=== PATIENT | male | born 1970 | race Caucasian/White ===

== ENCOUNTER 2019-06-10 12:59 | Outpatient (CLI) | payer OTHER, SELFPAY | END 2019-06-10 13:00 | disposition home or self-care (01) | LOC: CHSIMG 13:01 | PROVIDERS: PCP Internal Medicine; Visit Provider Internal Medicine | DX: R94.31 Abnormal electrocardiogram [ECG] [EKG] (principal) | CPT/HCPCS: 93306 ==

== ENCOUNTER 2020-08-13 11:03 | Emergency (ER) | payer OTHER, SELFPAY ==
--- NOTE | 2020-08-13 11:24 | ED.WOUNDLAC ---
HPI - Wound/Laceration General Chief Complaint: Extremity Problem,Nontraumatic Stated Complaint: left foot pain Source: patient Mode of arrival: ambulatory Limitations: no limitations History of Present Illness HPI narrative: this is a 49-year-old male presents with some was diagnosis cellulitis by urgent care and currently on antibiotics and also given naproxen, pain is tolerable x-rays performed at the urgent care show no acute fractures patient was placed on p.o. antibiotics. There is currently some mild swelling with redness it appears localized to the lateral aspect of his left ankle with no spread of the cellulitis no calf pain no warmth or tenderness. Onset (ago): day(s) Extremity Location: Left: ankle ( cellulitis) Related Data Home Medications Medication Instructions Recorded Confirmed cephalexin 500 mg PO QID 08/13/20 08/13/20 lisinopril 20 mg PO DAILY 08/13/20 08/13/20 naproxen 500 mg PO BID 08/13/20 08/13/20 Allergies Allergy/AdvReac Type Severity Reaction Status Date / Time No Known Allergies Allergy Verified 08/13/20 11:18 Review of Systems Review of Systems: All systems reviewed & are unremarkable except as noted in HPI and below PMFSH Past Medical History Medical History Patient denies medical problems Exam Const: General: no acute distress and alert Orientation/consciousness: patient oriented x3 HENMT: Head: normal to inspection Eyes: Conjunctivae: conjunctivae normal Pupils: Equal, round and reactive pupils present EOM: EOMs intact bilaterally Neck: Neck: normal visual inspection, no lymphadenopathy and no meningeal signs Chest: Chest palpation & inspection: normal inspection of the chest Resp: Effort & Inspection: normal respiratory effort Cardio: Rate: regular rate Rhythm: regular rhythm Urinary Catheter: Urinary Catheter: patent and draining Skin: General skin exam: normal color Other: mild erythema lateral aspect of his left ankle improving per patient Neuro: General: patient oriented x3 Extrem: General: normal to inspection and edema Psych: Mental Status: mental status grossly normal Affect: normal affect Course Course Emergency Course: patient here today was diagnosed with cellulitis on Thursday prescribed antibiotics and naproxen currently having some mild swelling but reassured patient that swelling is part of the infection and to continue his antibiotics if symptoms persist should follow-up primary care physician. Critical Care Time Critical Care Time Critical Care Time: No Discharge Plan Discharge Clinical Impression: Lower extremity edema Cellulitis Qualifiers: Site of cellulitis: extremity Site of cellulitis of extremity: lower extremity Laterality: left Qualified Code(s): L03.116 - Cellulitis of left lower limb Patient Disposition: Home, Self-Care Condition: Stable Instructions: Antibiotic Form, Edema (ED), Cellulitis (ED) Additional Instructions: continue current medication follow-up with primary care physician if symptoms persist or worsen. Prescriptions: No Action lisinopril 20 mg tablet 20 mg PO DAILY RF: 0 cephalexin 500 mg capsule 500 mg PO QID RF: 0 naproxen 500 mg tablet 500 mg PO BID RF: 0 Follow-up/Referrals: Hugo To MD [Primary Care Provider] - Time of Disposition: 11:29
[2020-08-13 11:35] VITALS: BP 184/120
== END 2020-08-13 11:35 | disposition home or self-care (01) ==
PROVIDERS: Emergency Provider Emergency Medicine; PCP Internal Medicine
DX: L03.116 Cellulitis of left lower limb (principal)
CPT/HCPCS: 99281; 99282

== ENCOUNTER 2022-12-30 01:22 | Day surgery (SDC) | payer BC, SELFPAY ==
[2022-12-19 15:57] VITALS: BMI 24.4
--- NOTE | 2022-12-30 11:18 | WPDANESEPPF ---
Anes - Initial Pre Proc Eval Procedure: Operation Date: 12/30/22 12:30 Proposed Procedures p Colonoscopy - Josse Quinonez MD Date/Time: 12/30/22 11:18 Surgeon: Josse Quinonez MD Pre Op Diagnosis: Diarrhea Patient Data Age: 52 Gender: M Height: 1.78 m Weight: 77.2 kg Allergies Allergy/AdvReac Type Severity Reaction Status Date / Time No Known Allergies Allergy Verified 12/19/22 15:56 Home Medications Medication Instructions Recorded Confirmed Type atenolol 50 mg tablet 50 mg PO DAILY 12/19/22 12/19/22 History losartan 100 1 tablet PO DAILY 12/19/22 12/19/22 History mg-hydrochlorothiazide 25 mg tablet Patient hx anesthesia problems: none Family hx anesthesia problems: none Results Review: All pre-operative results and documents have been reviewed as part of the pre-operative evaluation. [facility] Past Medical History Medical History Patient denies medical problems Social History Social History Smoking status: Never smoker Alcohol intake: current Drinks per week: 6 Substance use type: does not use Living arrangements: with family Spiritual care concerns: No Anes - Eval Final PreProcedure Day of Procedure 12/30/22 11:18 Patient weight: normal Heart: regular rate and rhythm Lungs: clear to auscultation Airway: Mallampati scale class II Neurological: alert and oriented Last oral intake: >/= 8 hours ASA classification: II Emergent: no Anesthetic plan: proceed Anesthesia type and monitoring: general GIVS and standard monitoring Results Review: All pre-operative results and documents have been reviewed as part of the pre-operative evaluation. Informed Consent: The patient's anesthetic plan and its attendant risks and benefits were discussed with the patient/family/POA. Questions were solicited and answers provided to the satisfaction of the patient/family/POA.
[2022-12-30 11:20] VITALS: BP 183/118; PULSE 85; RESP 18; TEMP 36.5; O2SAT 100
[2022-12-30] MEDS: LACTATED RINGERS 1,000 ML 150 ML IV CONT (11:24)
--- NOTE | 2022-12-30 11:26 | PM.HPGS ---
History of Present Illness History of Present Illness Consent: Risks, benefits, and alternatives have been discussed and questions answered. Patient agrees to proceed with procedure. Chief complaint: Diarrhea Narrative: Jaron Sheets is a 52 year old male with previous history of diverticulosis, last colonoscopy 2015, recently had diarrhea and llq pain Review of Systems Constitutional: Constitutional: Denies headache(s) and Denies weakness Eyes: Eyes: Denies blurry vision ENT: Reports Normal hearing present, Denies headache(s) and Denies neck pain Cardiovascular: Cardiovascular: Denies chest pain and Denies dyspnea Respiratory: Respiratory: Denies dyspnea Gastrointestinal: Gastrointestinal: Reports no additional gastrointestinal complaints Genitourinary: Genitourinary: Denies dysuria Musculoskeletal: Musculoskeletal: Denies neck pain Integumentary/Breasts: Skin/Breast: Denies dry skin Neurologic: Reports Normal hearing present, Denies headache(s) and Denies weakness Psychiatric: Psychiatric: Denies anxiety Endocrine: Endocrine: Denies change in body appearance Hematologic/Lymphatic: Hematologic/Lymphatic: Denies easy bleeding Allergic/Immunologic: Allergic/Immunologic: Denies urticaria PMF Past Medical History Medical History (Updated 12/30/22 @ 11:27 by Josse Quinonez MD) Colon cancer screening Patient denies medical problems Social History Social History Smoking status: Never smoker Alcohol intake: current Drinks per week: 6 Substance use type: does not use Living arrangements: with family Spiritual care concerns: No Meds Home Medications and Allergies Home Medications Medication Instructions Recorded Confirmed Type atenolol 50 mg tablet 50 mg PO DAILY 12/19/22 12/19/22 History losartan 100 1 tablet PO DAILY 12/19/22 12/19/22 History mg-hydrochlorothiazide 25 mg tablet Allergies Allergy/AdvReac Type Severity Reaction Status Date / Time No Known Allergies Allergy Verified 12/30/22 11:20 Vital Signs Vital Signs - 24 hr 12/30/22 11:20 Temperature 97.7 F Pulse Rate 85 Respiratory Rate 18 Blood Pressure 183/118 H Pulse Oximetry 100 Oxygen Delivery Room Air Exam Const: General: comfortable and no acute distress HENMT: Face/Nose/Sinus: Normal nares present Eyes: General: appearance normal, both eyes and all related structures Neck: Neck: no JVD Resp: Auscultation: clear to auscultation bilaterally Cardio: Rate: regular rate Rhythm: regular rhythm GI: Inspection: non-distended GI Palp: Yes Soft to palpation Skin: General skin exam: normal color Neuro: General: gait normal Speech: normal speech Extrem: General: normal to inspection Psych: Mental Status: mental status grossly normal Assessment and Plan Assessment and plan (1) Colon cancer screening: Code(s): Z12.11 - Encounter for screening for malignant neoplasm of colon Status: Acute Assessment and Plan: colonoscopy
[2022-12-30 11:41] VITALS: BP 129/71; PULSE 77; RESP 20; O2SAT 100
[2022-12-30 11:51] VITALS: BP 128/89; PULSE 76; RESP 18; O2SAT 98
[2022-12-30 12:01] VITALS: BP 148/100; PULSE 71; RESP 18; O2SAT 98
== END 2022-12-30 12:10 | disposition home or self-care (01) ==
PROVIDERS: PCP Internal Medicine; Visit Provider Internal Medicine Gastroenterology
PROC: 0DJD8ZZ Inspection of Lower Intestinal Tract, Via Natural or Artificial Opening Endoscopic (ICD-10-PCS; CPT 45378; principal; 2022-12-30 12:30)
DX: Z12.11 Encounter for screening for malignant neoplasm of colon (principal); K57.30 Diverticulosis of large intestine without perforation or abscess without bleeding; K64.8 Other hemorrhoids; R19.7 Diarrhea, unspecified
CPT/HCPCS: 45380; 88305; J2704; J7120

== ENCOUNTER 2023-03-06 11:28 | Outpatient (CLI) | payer BC, SELFPAY ==
--- NOTE | ~2023-03-06 | XR_ITS ---
Lumbosacral Spine: AP and lateral views Clinical History: Pain Findings: The normal lordotic curve is maintained. The vertebral bodies and posterior elements are i ntact. The intervertebral disc spaces are preserved. There is mild to moderate facet arthropathy of the lower lumbar spine. The sacroiliac joints are normally outlined. Impression: Mild to moderate facet arthropathy at the lower lumbar spine. Reviewed, dictated and finalized at location . [employer] Impression: Mild to moderate facet arthropathy at the lower lumbar spine.
== END 2023-03-06 11:29 | disposition home or self-care (01) ==
LOC: CHSIMG 11:31
PROVIDERS: PCP Internal Medicine; Visit Provider Internal Medicine
DX: M54.50 Low back pain, unspecified (principal); M12.88 Other specific arthropathies, not elsewhere classified, other specified site
CPT/HCPCS: 72100

== ENCOUNTER 2023-09-29 10:07 | Outpatient (CLI) | payer BC, SELFPAY ==
--- NOTE | ~2023-09-29 | XR_ITS ---
Right foot Technique: AP, oblique, and lateral views were obtained. Clinical History: Swelling Findings: No acute fracture or dislocation is seen. Osseous alignment is anatomic. Joint spaces are p reserved without erosive or degenerative change. Soft tissues are unremarkable. Impression: Unremarkable right foot radiographs. Reviewed, dictated and finalized at location . Impression: Unremarkable right foot radiographs.
--- NOTE | ~2023-09-29 | XR_ITS ---
Left foot Technique: AP, oblique, and lateral views were obtained. Clinical History: Gout Findings: No acute fracture or dislocation is seen. Osseous alignment is anatomic. Joint spaces are p reserved without erosive or degenerative change. Soft tissues are unremarkable. Impression: Unremarkable left foot radiographs. Reviewed, dictated and finalized at location . Impression: Unremarkable left foot radiographs.
== END 2023-09-29 10:08 | disposition home or self-care (01) ==
LOC: CHSIMG 10:10
PROVIDERS: PCP Internal Medicine; Visit Provider Nurse Practitioner Family
DX: M10.9 Gout, unspecified (principal); R22.41 Localized swelling, mass and lump, right lower limb
CPT/HCPCS: 73630

== ENCOUNTER 2024-12-12 15:03 | Emergency (ER) | payer BC, SELFPAY ==
--- NOTE | ~2024-12-12 | CT_ITS ---
EXAMINATION: CT abdomen pelvis wo con DATE: 12/12/2024 15:16 INDICATION: Flank pain TECHNIQUE: Computed tomography (CT) of the abdomen and pelvis was performed without intravenous contrast. The dose-length product was 427.50 mGy-cm. Automated exposure control and iterative reconstruction technique were employed. COMPARISON: None. FINDINGS: Lung bases unremarkable. Heart size normal. No significant pleural or pericardial effusion. Fatty infiltration of the liver. The spleen, pancreas, adrenal glands and left kidney are unremarkable. There is punctate calcification in the bladder, consistent with recently passed stone with moderate right hydroureteronephrosis and mild right perinephric stranding. Bladder is decompressed limiting evaluation for wall thickening. No abnormal pelvic masses or fluid collections. There is mild atherosclerosis of the aorta without aneurysm. No lymphadenopathy. Gallbladder is present. No free air or free fluid. Colonic diverticulosis without evidence for diverticulitis. IMPRESSION: 1. Small punctate 2 mm bladder stone, consistent with recently passed stone with resultant hydronephrosis. Reviewed, dictated and finalized at location O. IMPRESSION: 1. Small punctate 2 mm bladder stone, consistent with recently passed stone wit h resultant hydronephrosis.
[2024-12-12 15:05] VITALS: BP 171/94; PULSE 69; RESP 16; TEMP 36.7; O2SAT 100
--- OUTSIDE RECORDS SUMMARY | 2024-12-12 15:16 | XMS_ITS | Clinical Summary ---
Author Organization [facility] Address [facility] [place] [address] Care Team Providers Care Cosmetic Consultant Name Role Phone Hugo To MD Primary Care Provider [phone] Allergies No known active allergies Medications No known medications Active Problems Problem Noted Date Diagnosed Date Microscopic hematuria 07/16/2020 Overview (07/16/2020): Added automatically from request for surgery [id number] Social History Tobacco Use Types Packs/Day Years Used Date Smoking Tobacco: Never Smokeless Tobacco: Former Alcohol Use Standard Drinks/Week Comments Yes 0 (1 standard drink = 0.6 oz pur e alcohol) occationally Sex and Gender Information Value Date Recorded Sex Assigned at Not on file Legal 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 Gender Identity Not on file Sexual Orientation Not on file Last Filed Vital Signs Vital Sign Reading Time Taken Comments Blood Pressure - - Pulse - - Temperature - - Respiratory Rate - - Oxygen Saturation - - Inhaled Oxygen Concentration - - Weight 77.1 kg (170 lb) 07/17/2020 11:09 AM CDT Height 177.8 cm (5' 10) 07/17/2020 11:09 AM CDT Body Mass Index 24.39 07/17/2020 11:09 AM CDT Plan of Treatment Health Maintenance Due Date Last Done Comments Colorectal Cancer Screening Colonoscopy (10 Years) 1972 Annual Physical 10/23/1975 Hepatitis C 1990 DTaP, Tdap and Td Vaccines ( 1 - Tdap) 10/23/1991 Hepatitis B Vaccines (1 of 3 - 19+ 3-dose series) 10/23/1991 Pneumococcal Vaccine: 50+ Ye ars (1 of 1 - PCV) 2022 Zoster Vaccines (1 of 2) 2022 COVID-19 Vaccine (2023-2 5 season) 2024 Meningococcal B Vaccine Aged Out No l onger eligible based on patient's age to complete this topic Meningococcal Vaccine Aged Out No dayanara didi eligible based on patient's age to complete this topic RSV Immunizations Under 20 Months Aged Out No longer eligible based on patient's age to complete this topic Insurance [facility] Care Teams Cosmetic Consultant Relationship Specialty Start Date End Date Hugo To MD [address] [place] [id number] PCP - General INTERNAL MEDICINE 07/10/20
[2024-12-12 15:37] LABS: Hematocrit 41.0 % (40.0-54.0); Hemoglobin 13.6 g/dL (14.0-18.0); Immature Granulocyte Percent A 0.5 % (0.0-0.0); Lymphocytes Absolute Auto 1.70 K/mm3 (1.10-4.50); Mean Corpuscular HGB Conc 33.2 g/dL (32-36); Mean Corpuscular Hemoglobin 31.2 pg (27.0-31.0); Mean Corpuscular Volume 94.0 fL (78.0-102.0); Nucleated Red Blood Cells Absolute Auto 0.00 K/mm3 (0.00-0.00); Nucleated Red Blood Cells Perc 0.0 % (0-0.0); Platelet Count Result 245 K/mm3 (150-420); Red Blood Count 4.36 M/mm3 (4.70-6.10); White Blood Count 9.9 K/mm3 (4.8-10.8)
[2024-12-12 15:38] LABS: Add Urine Microscopic? YES; Appearance Urine Clear (Clear); Glucose Urine UA Negative (Negative); Leukocyte Esterase Ur 1+ LEU/UL (Negative); Nitrate Urine Negative (Negative); Specific Grav Ur 1.025 (1.010-1.020)
[2024-12-12 15:48] LABS: Alanine Aminotransferase 43 U/L (6-50); Albumin Level 4.9 g/dL (3.5-5.1); Alkaline Phosphatase 69 U/L (38-126); Anion Gap 13 mmol/L (4-12); Aspartate Amino Transferase 34 U/L (17-59); Bilirubin,Total 0.8 mg/dL (0.2-1.3); Blood Urea Nitrogen 27 mg/dL (9-20); Calcium 10.2 mg/dL (8.4-10.2); Carbon Dioxide 26 mmol/L (22-30); Chloride 99 mmol/L (98-107); Estimated CRCL calculation 40 ml/min; Estimated Glomerular Filt Rate 35; Glucose 114 mg/dL (65-110); Osmolality Calculated 292 mOsm/kg (285-295); Potassium 3.9 mmol/L (3.4-5.0); Sodium 138 mmol/L (137-145); Total Protein 10.6 g/dL (6.3-8.2)
--- NOTE | 2024-12-12 16:02 | ED.ABDPAIN ---
HPI - Abdominal Pain General Chief Complaint: Urogenital-Male Stated Complaint: rt. flank pain Time Seen by Provider: 12/12/24 15:07 Source: patient Mode of arrival: ambulatory Limitations: no limitations History of Present Illness HPI narrative: 54-year-old with a history of hypertension, hyperlipidemia here with a complains of right flank pain which started 2 days ago. Patient states that the 1st 2 days he had fever however since yesterday fever is much subsided. He went to urgent care earlier this morning was told that he had blood in the urine and was referred to the ER. He presently denies having any nausea, vomiting of the fever or chills. No previous history of kidney stones. MD elicited complaint: flank pain Onset (ago): day(s) (3) Pain Consistency: now resolved Location: R flank Severity: moderate Quality: aching Radiation: none Migration to: no migration Exacerbating factors: nothing Relieving factors: nothing Associated symptoms: fever Related Data Home Medications ?Medication ?Instructions ?Recorded ?Confirmed ?Last Taken ?Type atenolol 50 mg tablet 50 mg PO DAILY 12/19/22 11/10/24 12/29/22 History losartan 100 1 tablet PO DAILY 12/19/22 11/10/24 12/29/22 History mg-hydrochlorothiazide 25 mg tablet omega 7-hum-kuq-fish oil 1,000 mg 1 cap PO BID 11/10/24 11/10/24 Unknown History (120 mg-180 mg) capsule (Fish Oil) rosuvastatin 5 mg tablet 5 mg PO DAILY 11/10/24 11/10/24 Unknown History Allergies Allergy/AdvReac Type Severity Reaction Status Date / Time No Known Allergies Allergy Verified 12/30/22 11:20 Review of Systems Review of Systems: All systems reviewed & are unremarkable except as noted in HPI and below Constitutional: Constitutional: Reports no additional constitutional complaints Eyes: Eyes: Reports no additional eye complaints ENT: Reports system reviewed and no additional complaints, except as documented Cardiovascular: Cardiovascular: Reports no additional cardiovascular complaints Respiratory: Respiratory: Reports no additional respiratory complaints Gastrointestinal: Gastrointestinal: Reports as per HPI Musculoskeletal: Musculoskeletal: Reports no additional musculoskeletal complaints ON LICENSE OF [facility] Past Medical History Medical History Colon cancer screening Patient denies medical problems Social History Social History Smoking status: Never smoker Alcohol intake: current Drinks per week: 6 Substance use type: does not use Living arrangements: with family Spiritual care concerns: No Exam Narrative: GENERAL: Well-appearing, well-nourished, and in no acute distress. HEAD: Normocephalic, atraumatic. EYES: PERRLA and EOMI. ENT: Nares clear, no rhinorrhea or epistaxis. Mucous membranes moist. NECK: Supple. CHEST: Clear to auscultation. No respiratory distress. HEART: Regular rate and rhythm. No murmur heard. Normal peripheral pulses. ABDOMEN: Soft, nontender, nondistended, normal active bowel sounds. EXTREMITIES: Normal range of motion. No edema. SKIN: Warm, dry, no rash. NEURO: No focal deficits. Alert and oriented x3. PSYCH: Normal mood and affect. Course Course Emergency Course: Patient still remained pain-free at this time. Informed him about his lab work, CT findings we did recommended him to take antibiotic as prescribed. Drink plenty of fluids, follow with the primary doctor Vital Signs Vital signs: Vital Signs Temperature 36.7 C 12/12/24 15:05 Pulse Rate 69 12/12/24 15:05 Respiratory Rate 16 12/12/24 15:05 Blood Pressure 171/94 H 12/12/24 15:05 Pulse Oximetry 100 12/12/24 15:05 Oxygen Delivery Room Air 12/12/24 15:05 Temperature 36.7 C 12/12/24 15:05 Pulse Rate 69 12/12/24 15:05 Respiratory Rate 16 12/12/24 15:05 Blood Pressure 171/94 H 12/12/24 15:05 Pulse Oximetry 100 12/12/24 15:05 Oxygen Delivery Room Air 12/12/24 15:05 MDM - Abdominal Pain Differential Diagnosis Differential diagnosis: Likely abdominal pain, calculus of kidney and diverticulitis Medical Records Attestation: I reviewed the patient's medical records. Lab Data Attestation: I reviewed the patient's lab results. 12/12/24 15:33 12/12/24 15:33 Labs: Lab Results 12/12/24 12/12/24 Range/Units 15:28 15:33 WBC 9.9 (4.8-10.8) K/mm3 RBC 4.36 L (4.70-6.10) M/mm3 Hgb 13.6 L (14.0-18.0) g/dL Hct 41.0 (40.0-54.0) % MCV 94.0 (78.0-102.0) fL MCH 31.2 H (27.0-31.0) pg MCHC 33.2 (32-36) g/dL RDW 12.8 (11.6-14.4) % Plt Count 245 (150-420) K/mm3 MPV 9.5 (8.7-11.0) fl Immature Gran % (Auto) 0.5 H (0.0-0.0) % Neut % (Auto) 72.4 H (50.0-70.0) % Lymph % (Auto) 17.1 L (18.0-42.0) % [place] % (Auto) 8.4 (2.0-11.0) % Eos % (Auto) 1.3 (1.0-6.0) % Baso % (Auto) 0.3 (0.0-1.0) % Lymph # (Auto) 1.70 (1.10-4.50) K/mm3 [place] # (Auto) 0.83 (0.10-0.90) K/mm3 Eos # (Auto) 0.13 (0.02-0.50) K/mm3 Baso # (Auto) 0.03 (0.00-0.10) K/mm3 Abs Immat Gran (auto) 0.05 H (0.00-0.00) K/mm3 Absolute Neuts (auto) 7.20 (1.70-7.20) K/mm3 Absolute Nucleated RBC 0.00 (0.00-0.00) K/mm3 Nucleated RBC % 0.0 (0-0.0) % Sodium 138 (137-145) mmol/L Potassium 3.9 (3.4-5.0) mmol/L Chloride 99 (98-107) mmol/L Carbon Dioxide 26 (22-30) mmol/L Anion Gap 13 H (4-12) mmol/L BUN 27 H (9-20) mg/dL Creatinine 2.03 H (0.7-1.3) mg/dL Estim Creat Clear Calc 40 ml/min Estimated GFR 35 L (59 - ) Glucose 114 H (65-110) mg/dL Calculated Osmolality 292 (285-295) mOsm/kg Calcium 10.2 (8.4-10.2) mg/dL Total Bilirubin 0.8 (0.2-1.3) mg/dL AST 34 (17-59) U/L ALT 43 (6-50) U/L Alkaline Phosphatase 69 (38-126) U/L Total Protein 10.6 H (6.3-8.2) g/dL Albumin 4.9 (3.5-5.1) g/dL Urine Color Light yellow (Yellow) Urine Appearance Clear (Clear) Urine pH 6.0 (5.0-8.0) Ur Specific [place] 1.025 H (1.010-1.020) Urine Protein Negative (Negative) Urine Glucose (UA) Negative (Negative) Urine Ketones Negative (Negative) Ur Blood (Man) 2+ H (Negative) Urine Nitrate Negative (Negative) Urine Bilirubin Negative (Negative) Urine Urobilinogen 0.2 (0.2-1.0) mg/dL Leukocyte Esterase Rfl 1+ H (Negative) ERICA/UL Urine RBC 3-5 H (0-2) /hpf Urine WBC 4-6 H (0-3) /hpf Ur Squamous Epith Cells Rare (Few) /hpf Urine Bacteria 1+ H (None) /hpf Imaging Data Radiologist's impression: ITS Impressions Abdomen/Pelvis CT 12/12/24 15:22 IMPRESSION: 1. Small punctate 2 mm bladder stone, consistent with recently passed stone with resultant hydronephrosis. Discharge Plan Discharge Clinical Impression: Renal colic on right side Patient Disposition: Home Condition: Stable Instructions: Kidney Stones (ED) Patient Language: Spanish Prescriptions: New tamsulosin [Flomax] 0.4 mg capsule 0.4 mg PO DAILY Qty: 7 0RF ciprofloxacin HCl 500 mg tablet 500 mg PO Q12H Qty: 10 0RF No Action rosuvastatin 5 mg tablet 5 mg PO DAILY omega 2-dtl-yuh-fish oil [Fish Oil] 1,000 (120-180) mg capsule 1 cap PO BID losartan-hydrochlorothiazide 100-25 mg tablet 1 tablet PO DAILY atenolol 50 mg tablet 50 mg PO DAILY Follow-up/Referrals: Hugo To MD [Primary Care Provider, Internal Medicine] Time of Disposition: 16:05
[2024-12-12 16:18] VITALS: BP 136/91; PULSE 67; RESP 17; O2SAT 99
--- NOTE | 2024-12-15 13:48 | PC.NURSE ---
final urine culture reviewed. <10,000 bacterial colony count. this is generally not considered to be clinically significant. no change in plan of care
== END 2024-12-12 16:18 | disposition home or self-care (01) ==
PROVIDERS: Emergency Provider Family Medicine; PCP Internal Medicine
DX: N23 Unspecified renal colic (principal); I10 Essential (primary) hypertension; E78.5 Hyperlipidemia, unspecified
CPT/HCPCS: 36415; 74176; 80053; 81001; 85025; 87086; 99284